=== PATIENT | female | born 1960 | race Caucasian/White ===

== ENCOUNTER 2017-02-09 12:36 | Emergency (ER) | payer BC ==
[~2017-02-09 12:36] MED LIST: LEVO.05 PO; NAPR-576 PO
[2017-02-09 12:46] VITALS: BP 136/63; PULSE 41; RESP 20; TEMP 98.3; O2SAT 98
--- NOTE | 2017-02-09 13:44 | PD ---
HPI Chief Complaint: Fall Time Seen by Provider: 13:34 Travel History International Travel<30 days: No Contact w/Intl Traveler<30days: No Traveled to known affect area: No History of Present Illness HPI The patient was seen and examined in the presence of the nurse. This patient complains of a fall injuring her right knee. Duration 1 hour. Severity is moderate. Pain is worse with weightbearing. No alleviating factors. She did strike her right forehead but has no headache or LOC or neck pain and takes no blood thinners and does not want that evaluated. She says it is fine. PFSH Past Medical History Hx Anticoagulant Therapy: No Arthritis: Yes ("RHEUMATOID") Asthma: No Atrial Fibrillation: Yes Blood Disorders: No Anxiety: Yes Heart Rhythm Problems: Yes (PVC) Cancer: No Cardiac Catheterization: No Cardiovascular Problems: Yes (MITRAL VALVE PROLAPSE, IRREGULAR HEARTBEAT, CONGENITAL DEFECT,ABLATION 2012) High Cholesterol: Yes Chemotherapy: No Chest Pain: Yes Congestive Heart Failure: No COPD: No Diabetes: No Diminished Hearing: No Endocrine: No Fibromyalgia: Yes Gastrointestinal Disorders: No Glaucoma: No Genitourinary: No Hepatitis: No Hiatal Hernia: No Hypertension: Yes Immune Disorder: No Musculoskeletal: No Neurologic: No Psychiatric: No Reproductive: No Respiratory: No Integumentary: No Immunizations Current: No ("ALLERGIC TO VACCINES") Myocardial Infarction: No Radiation Therapy: No Renal Failure: No Sleep Apnea: No Thyroid Disease: Yes Menopausal: Yes Past Surgical History Abdominal Surgery: Yes (1999--R.INGUINAL HERNIA) Cardiac Surgery: Yes (OBLATION FOR SVT) Coronary Artery Bypass Graft: No Ear Surgery: No Endocrine Surgery: No Eye Surgery: No Genitourinary Surgery: No Gynecologic Surgery: Yes (2001--DNC) Mastectomy: No (LUMLLPECTOMY) Oral Surgery: No Pacemaker: No Thoracic Surgery: No Tonsillectomy: Yes Other Surgery: Yes (BREAST IMPLANTS) Social History Alcohol Use: Yes (OCCASIONALLY) Tobacco Use: Yes (04/12 PPD) Substance Use: No Allergies-Medications (Allergen,Severity, Reaction): Coded Allergies: codeine (Unverified Allergy, Severe, Itching, 11/21/16) nitroglycerin (Unverified Allergy, Severe, PT STATES NITRO DECREASES BP TOO LOW, 11/21/16) tetanus toxoid, adsorbed (Unverified Allergy, Severe, RASH/HIVES, 11/21/16) Reported Meds & Prescriptions Reported Meds & Active Scripts Active Reported Magnesium Oxide 400 Mg Tab 400 Mg PO DAILY Cymbalta DR (Duloxetine HCl) 60 Mg Capdr 60 Mg PO DAILY Synthroid (Levothyroxine Sodium) 150 Mcg Tab 150 Mcg PO DAILY Lipitor (Atorvastatin Calcium) 40 Mg Tab 40 Mg PO HS Review of Systems General / Constitutional: No: Fever Eyes: No: Visual changes HENT: No: Headaches Cardiovascular: No: Chest Pain or Discomfort Respiratory: No: Shortness of Breath Gastrointestinal: No: Abdominal Pain Genitourinary: No: Dysuria Musculoskeletal: Positive: Arthralgias, Limited ROM, Pain Skin: No Rash Neurologic: No: Weakness Psychiatric: No: Depression Endocrine: No: Polydipsia Hematologic/Lymphatic: No: Easy Bruising Physical Exam Narrative GENERAL: Well-nourished, well-developed patient in no apparent distress. SKIN: Focused skin assessment reveals no rash and nodules. Skin is Warm and dry. HEAD: Some ecchymosis to the right forehead. Normocephalic. EYES: Pupils equal and round. No scleral icterus. No injection or drainage. ENT: No nasal bleeding or discharge. Mucous membranes pink and moist. NECK: Trachea midline. No JVD. No midline tenderness CARDIOVASCULAR: Regular rate and rhythm. No murmur appreciated. RESPIRATORY: No accessory muscle use. Clear to auscultation. Breath sounds equal bilaterally. GASTROINTESTINAL: Abdomen soft, non-tender, nondistended. Hepatic and splenic margins not palpable. MUSCULOSKELETAL: No obvious deformities. No clubbing. No cyanosis. No edema. Patient has a bit of ecchymosis and tenderness of the right inferior patella. Neurovascularly intact right leg NEUROLOGICAL: Awake and alert. No obvious cranial nerve deficits. Motor grossly within normal limits. Normal speech. PSYCHIATRIC: Appropriate mood and affect; insight and judgment normal. Data Data Last Documented VS Vital Signs Date Time Temp Pulse Resp B/P (MAP) Pulse Ox O2 Delivery O2 Flow Rate FiO2 02/09/17 12:46 98.3 41 20 136/63 (87) 98 Orders Orders Knee, Complete (4vws) (02/09/17 ) Crutches (02/09/17 14:37) ^ Knee Immobilizer (02/09/17 14:37) MDM Medical Decision Making Medical Screen Exam Complete: Yes Emergency Medical Condition: Yes Medical Record Reviewed: Yes Differential Diagnosis Patella fracture, knee dislocation, contusion Narrative Course I have reviewed the patient's electronic medical record. I reviewed her right knee x-rays which show a fracture of the patella, nondisplaced Patient given head injury precautions I gave her crutches and placed her in an immobilizer and some medication for pain She has no orthopedist to follow-up with Diagnosis Primary Impression: Right patella fracture Qualified Codes: S82.034A - Nondisplaced transverse fracture of right patella , initial encounter for closed fracture Additional Instructions: The patient was advised to follow up with their orthopedist and return if they worsen. The patient was warned about potential sedation for the medications they will receive on prescription. use head injury precautions Ice and elevate right knee, use crutches and wear immobilizer Med/Other Pt SpecificInfo: Prescription(s) given Scripts Hydrocodone-Acetaminophen (Lortab) 5-325 Mg Tab 1 TAB PO Q6H Y for PAIN, #20 TAB 0 Refills Prov: Marciano Burrell MD 02/09/17 Disposition: 01 DISCHARGE HOME Condition: Stable Marciano Burrell MD Feb 09, 2017 13:44
[2017-02-09] MEDS ORDERED: LEVO.15 PO (13:54)
[2017-02-09] MEDS ORDERED: CYMB60CA PO (13:54)
[2017-02-09] MEDS ORDERED: LIPI40TA PO (13:54)
[2017-02-09] MEDS ORDERED: MAGN400T2 PO (13:54)
--- NOTE | 2017-02-09 14:32 | RADRPT ---
EXAM DATE/TIME: 02/09/2017 13:59 [facility] COMPARISON: No previous studies available for comparison. INDICATIONS : Fell into a wall this morning, pain anterior right knee MEDICAL HISTORY : None. SURGICAL HISTORY : None. ENCOUNTER: Initial ACUITY: 1 day PAIN SCORE: 10/10 LOCATION: Right knee FINDINGS: Four view examination of the right knee demonstrates no evidence of fracture or dislocation. Bony mi neralization is normal. The articular surfaces are intact. The suprapatellar soft tissues have a no rmal configuration. CONCLUSION: Negative for fracture or dislocation. Follow up in 7-10 days is suggested if symptoms persist. Sandro Light MD FACR on February 09, 2017 at 14:29 Board Certified Radiologist. This report was verified electronically.
[2017-02-09] MEDS ORDERED: HYDR-3533 PO (14:40)
== END 2017-02-09 15:13 | disposition home or self-care (01) ==
LOC: PHED 12:36
DX: S82.034A Nondisplaced transverse fracture of right patella, initial encounter for closed fracture (principal); W19.XXXA Unspecified fall, initial encounter
CPT/HCPCS: 73564; 99283; E0113; L1830